=== PATIENT | male | born 1990 | race Caucasian/White ===

== ENCOUNTER 2017-12-09 23:49 | Emergency (ER) | payer MEDICAID ==
[~2017-12-09] VITALS: Ht 167.6 cm; Wt 82.0 kg
[2017-12-10] MEDS ORDERED: SODIUM CHLORIDE 0.9% 1,000 ML IV ONE ×2 (00:30→03:00)
[2017-12-10] MEDS ORDERED: LORAZEPAM 2MG/ML CPJ IV ONE ×2 (00:30→03:30)
[2017-12-10 01:33] LABS: BASOPHILS % 0.7 % (0.0-2.0); HEMATOCRIT. 44.9 % (42.0-52.0); HEMOGLOBIN. 15.5 g/dL (14.0-18.0); LYMPHOCYTES % 7.1 % (20.0-50.0); MEAN CORPUSCULAR HEMOGLOBIN 31.6 pg (28.0-32.0); MEAN CORPUSCULAR VOLUME 91.1 fL (80.0-94.0); MEAN PLATELET VOLUME 8.3 fl (7.4-10.4); MONOCYTES % 9.9 % (2.0-8.0); NEUTROPHILS % 82.3 % (40.0-76.0); PLATELET 327 x1000/uL (130-400); RED BLOOD CELL COUNT 4.92 mill/uL (4.7-6.1); RED CELL DISTRIBUTION WIDTH 13.5 % (11.6-14.6)
[2017-12-10 01:34] LABS: CHLORIDE 104 mEq/L (98-107)
[2017-12-10 01:46] LABS: ETHANOL BLOOD < 10 mg/dL
[2017-12-10] MEDS ORDERED: DIPHENHYDRAMINE 25MG CAPSULE PO ONE (03:30)
[2017-12-10] MEDS ORDERED: LORAZEPAM 2MG/ML CPJ IM ONE (03:30)
[2017-12-10 03:34] LABS: CLARITY URINE CLEAR (CLEAR); COLOR URINE DARK YELLOW (YELLOW); KETONES URINE 1+ (NEGATIVE); LEUKOCYTE ESTERASE URINE NEGATIVE (NEGATIVE); NITRITE URINE NEGATIVE (NEGATIVE); OCCULT BLOOD URINE NEGATIVE (NEGATIVE); PROTEIN URINE TRACE (NEGATIVE); UROBILINOGEN URINE 0.2 E.U./dL (0.2-1.0)
[2017-12-10 04:32] LABS: *AMPHETAMINES SCREEN URINE PRESUMTIVE POSITIVE (NEGATIVE); *BARBITURATES SCREEN URINE NEGATIVE (NEGATIVE); *BENZODIAZEPINES SCREEN URINE NEGATIVE (NEGATIVE); *COCAINE SCREEN URINE NEGATIVE (NEGATIVE); CANNABINOID URINE SCREEN PRESUMTIVE POSITIVE (NEGATIVE); METHADONE URINE SCREEN NEGATIVE (NEGATIVE); OPIATES URINE SCREEN NEGATIVE (NEGATIVE); PHENCYCLIDINE URINE SCREEN NEGATIVE (NEGATIVE)
[2017-12-10 05:49] VITALS: BP 137/97
== END 2017-12-10 05:49 | disposition home or self-care (01) ==
LOC: ER 23:49
DX: F12.10 Cannabis abuse, uncomplicated (principal); F15.10 Other stimulant abuse, uncomplicated; R40.4 Transient alteration of awareness; J45.909 Unspecified asthma, uncomplicated
CPT/HCPCS: 36415; 80053; 80305; 80307; 80329; 81003; 85025; 96361; 96374; 96376; 99284; G0482; J2060; J7030; Q0163

== ENCOUNTER 2020-12-20 04:24 | Emergency (ER) | payer MEDICAID, MEDICARE ==
[~2020-12-20] VITALS: Ht 172.7 cm; Wt 80.0 kg
[2020-12-20 04:25] VITALS: BP 154/100
== END 2020-12-20 05:00 | disposition left against medical advice (07) ==
LOC: ER 04:47
DX: Z53.21 Procedure and treatment not carried out due to patient leaving prior to being seen by health care provider (principal)